=== PATIENT | female | born 1995 | race Caucasian/White ===

== ENCOUNTER 2018-03-24 10:03 | Emergency (ER) | payer MEDICAID ==
[2018-03-24 10:22] VITALS: BP 127/81
[2018-03-24] MEDS ORDERED: BUFFERED LIDOCAINE 10 ML SYRINGE SUBQ STA (11:22)
--- NOTE | 2018-03-24 11:54 | ED Physician Documentation ---
PD HPI LOWER EXT INJURY - Stated complaint Stated Complaint: TOE PX - Chief complaint Chief Complaint: Ext Problem - History obtained from History obtained from: Patient, Family (mom) - History of Present Illness PD HPI LOW EXT INJURY LOCATION: Toe (2 weeks of bilateral ingrown toenails that are painful.) Review of Systems Constitutional: denies: Fever, Chills GI: reports: Reviewed and negative : reports: Reviewed and negative. 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 HEENT: None Psych: Depression Musculoskeletal: None Derm: None - Past Surgical History Past Surgical History: Yes HEENT: Myringotomy (tubes) - Present Medications Home Medications: Ambulatory Orders Medication Instructions Recorded Confirmed Cyclobenzaprine [Flexeril] 10 mg PO TID PRN #10 tablet 03/14/16 Ibuprofen [Motrin] 800 mg PO Q8H PRN #14 tablet 03/14/16 Cephalexin [Keflex] 500 mg PO Q6H #28 capsule 03/24/18 - Allergies Allergies/Adverse Reactions: Allergies Allergy/AdvReac Type Severity Reaction Status Date / Time No Known Drug Allergies Allergy Verified 03/24/18 10:22 - Social History Does the pt smoke?: No Smoking Status: Never smoker Does the pt drink ETOH?: No Does the pt have substance abuse?: No - Immunizations Immunizations are current?: Yes - POLST Patient has POLST: No PD ED PE NORMAL - Vitals Vital signs reviewed: Yes - General General: Alert and oriented X 3, No acute distress - Extremities Extremities: Other (The left big toe is ingrown on the lateral surface in the right big toe is ingrown on both surfaces.) - Neuro Neuro: Alert and oriented X 3, Normal speech Results - Vitals Vitals: Vital Signs - 24 hr 03/24/18 10:20 Temperature 36.0 C L Heart Rate 95 Respiratory 16 Rate Blood Pressure 127/81 H O2 Saturation 100 Oxygen O2 Source Room air Procedures - General procedure General procedure: Both sides of the right great toe and the lateral side of the left great toenail were dissected after digital blocks with excellent anesthesia. Departure - Departure Disposition: 01 Home, Self Care Clinical Impression: Ingrown toenail of left foot with infection, Ingrown toenail of right foot with infection Condition: Good Record reviewed to determine appropriate education?: Yes Instructions: ED Ingrown Toenail Excised Prescriptions: Cephalexin [Keflex] 500 mg PO Q6H #28 capsule
== END 2018-03-24 12:24 | disposition home or self-care (01) ==
LOC: ED 10:03
DX: L60.0 Ingrowing nail (principal); L08.9 Local infection of the skin and subcutaneous tissue, unspecified
CPT/HCPCS: 11730; 11732; 99283

== ENCOUNTER 2018-08-16 16:31 | Emergency (ER) | payer MEDICAID ==
--- NOTE | 2018-08-16 16:39 | ED Physician Documentation ---
PD HPI SKIN - Stated complaint Stated Complaint: LT FT BIG TOE INFECTION - Chief complaint Chief Complaint: Ext Problem - History obtained from History obtained from: Patient - History of Present Illness Timing - onset: How many days ago (few days of redness and swelling left big toe nailbed corner. She feels nail is ingrown. Has had this in the past. Other big toe with ingrown nail but not infected and she will trim it at home. The left one is too tender. Had soaked it.) Timing - duration: Days Timing - details: Gradual onset, Still present Location: Other (left big toenail and toe) Quality / character: Discolored (red), Swelling, Other (she noted some growth of tissue over the nail corner the past couple days.) Associated symptoms: No: Fever Similar symptoms before: Diagnosis (ingrown nail with paronychia) Recently seen: Not recently seen Review of Systems Constitutional: denies: Fever, Chills Cardiac: denies: Chest pain / pressure Respiratory: denies: Dyspnea PD PAST MEDICAL HISTORY - Past Medical History Past Medical History: Yes Cardiovascular: None Respiratory: None Neuro: None Endocrine/Autoimmune: None GI: None 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 HEENT: None Psych: Depression Musculoskeletal: None Derm: None - Past Surgical History Past Surgical History: Yes HEENT: Myringotomy (tubes) - Present Medications Home Medications: Ambulatory Orders Medication Instructions Recorded Confirmed Sulfamethox/Trimeth 800/160 1 each PO BID #10 tablet 08/16/18 [Bactrim Ds 800/160] - Allergies Allergies/Adverse Reactions: Allergies Allergy/AdvReac Type Severity Reaction Status Date / Time No Known Drug Allergies Allergy Verified 08/16/18 16:35 - Social History Does the pt smoke?: No Smoking Status: Never smoker Does the pt drink ETOH?: No Does the pt have substance abuse?: No - Immunizations Immunizations are current?: Yes - POLST Patient has POLST: No PD ED PE NORMAL - Vitals Vital signs reviewed: Yes - General General: Alert and oriented X 3, No acute distress, Well developed/nourished - Derm Derm: Normal color, Warm and dry - Extremities Extremities: Other (right big toe with some ingrown nail but not red nor tender. Left big toe with ingrown nail into lateral corner, with overlying small mound of granulation tissue and some redness and swelling of skin at corner of nail and extending almost to the IP joint. No pustule. Very tender. ) - Neuro Neuro: No sensory deficit Results - Vitals Vitals: Vital Signs - 24 hr 08/16/18 08/16/18 16:33 18:04 Temperature 36.5 C 37.2 C Heart Rate 96 102 H Respiratory 16 20 Rate Blood Pressure 127/72 123/79 O2 Saturation 97 97 Oxygen O2 Source Room air Procedures - General procedure General procedure: removal ingrown nail portion of big toe. Digital block with 2% lido used and then some local at nail corner. scalpel used to excise the granulation tissue from the corner. I then trimmed out the ingrown corner, which was about 1/4 inch into the side, and used silver nitrate in the corner to stem the bleeding. Bandaid with cotton ball used to hold pressure and further hemostasis. PD MEDICAL DECISION MAKING - ED course Complexity details: considered differential, d/w patient Departure - Departure Disposition: 01 Home, Self Care Clinical Impression: Ingrown nail, Paronychia Condition: Stable Record reviewed to determine appropriate education?: Yes Instructions: ED Paronychia Ch Follow-Up: [facility] [Provider Group] Prescriptions: Sulfamethox/Trimeth 800/160 [Bactrim Ds 800/160] 1 each PO BID #10 tablet Comments: Soak the toe in warm water couple times a day. Use some ointment to the area to keep it soft. Tylenol or ibuprofen as needed for pains. Bactrim antibiotic twice daily for 3 to 5 days until the redness and swelling are gone. Subsequently can follow-up with the ip litigation associate to see if they can do some more treatment around the nailbed to prevent the ingrowing. Discharge Date/Time: 08/16/18 18:05
[2018-08-16] MEDS ORDERED: LIDOCAINE 2% 10 ML MDV SUBQ STA (16:50)
[2018-08-16] MEDS ORDERED: SULFAMETH/TRIMETH DS 800/160 MG TABLET PO STA (16:51)
[2018-08-16 18:05] VITALS: BP 123/79
== END 2018-08-16 18:05 | disposition home or self-care (01) ==
LOC: ED 16:31
DX: L60.0 Ingrowing nail (principal); L03.032 Cellulitis of left toe; L03.031 Cellulitis of right toe
CPT/HCPCS: 11765; 99283; A9270

== ENCOUNTER 2018-11-03 20:50 | Emergency (ER) | payer MEDICAID ==
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
[2018-11-03 23:16] VITALS: BP 130/80
== END 2018-11-03 23:14 | disposition home or self-care (01) ==
LOC: ED 20:50
DX: S71.112A Laceration without foreign body, left thigh, initial encounter (principal); W26.0XXA Contact with knife, initial encounter; Y93.89 Activity, other specified; Y92.009 Unspecified place in unspecified non-institutional (private) residence as the place of occurrence of the external cause
CPT/HCPCS: 12001; 99281

== ENCOUNTER 2020-02-29 07:00 | Outpatient (CLI) | payer MEDICAID ==
[2020-02-29 23:53] LABS: TRICHOMONAS VAGINALIS DNA NEGATIVE (NEGATIVE)
== END 2020-02-29 23:59 | disposition home or self-care (01) ==
LOC: LAB.R 07:00
PROVIDERS: ATTEND Nurse Practitioner Obstetrics & Gynecology
DX: Z11.3 Encounter for screening for infections with a predominantly sexual mode of transmission (principal)
CPT/HCPCS: 87491; 87591; 87661